=== PATIENT | male | born 1960 | race African-American/Black ===

== ENCOUNTER 2016-10-05 21:04 | Emergency (ER) | payer OTHER ==
[2016-10-05 22:45] LABS: BASOPHILS % 0.4 (0.0-1.5); EOSINOPHILS % 0.8 % (0.0-6.8); MEAN CORPUSCULAR HEMOGLOBIN 31.9 pg (28.0-34.0); MONOCYTES % 2.9 % (0.0-11.0)
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
[2016-10-05] MEDS ORDERED: 0.9 % SODIUM CHLORIDE 1,000 ML IV ONE (22:59)
[2016-10-05] MEDS ORDERED: THIAMINE HCL 100 MG/ML 2ML VIAL ONE (22:59)
[2016-10-05] MEDS ORDERED: MVI, ADULT NO.1 WITH VIT K 10 ML VIAL IV ONE (23:00)
[2016-10-05] MEDS: THIAMINE HCL 100 MG, MVI, ADULT NO.1 WITH VIT K 10 ML, FOLIC ACID 5 MG in 0.9 % SODIUM ... IV SCH ×4 (23:00)
[2016-10-05] MEDS ORDERED: FOLIC ACID 5 MG/1 ML ONE (23:00)
[2016-10-05 23:03] LABS: AMPHETAMINE NEGATIVE ng/mL (<1000); BARBITURATES NEGATIVE ng/mL (<300); CANNABINOIDS NEGATIVE ng/mL (< 50); COCAINE NEGATIVE ng/mL (<150); METHAMPHETAMINE NEGATIVE ng/mL (<1000); METHYLENEDIOXYMETHAMPHETAMINE NEGATIVE ng/mL (<500); MORPHINE NEGATIVE ng/mL (<300)
[2016-10-05 23:06] LABS: eGFR (African) > 60; eGFR (Non-African) > 60
[2016-10-05 23:23] LABS: APPEARANCE,URINE CLOUDY (CLEAR); COLOR,URINE AMBER (YELLOW); OCCULT BLOOD,URINE 2+ (NEGATIVE); PH URINE 6.5 (5.0 - 8.0); UROBILINOGEN URINE 0.2 Eu (0.2-1.0)
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
[2016-10-06 02:11] VITALS: BP 145/85
== END 2016-10-06 01:45 | disposition short-term general hospital (02) ==
LOC: ED 21:04
DX: S22.009A Unspecified fracture of unspecified thoracic vertebra, initial encounter for closed fracture (principal); S12.691A Other nondisplaced fracture of seventh cervical vertebra, initial encounter for closed fracture; S22.31XA Fracture of one rib, right side, initial encounter for closed fracture; V89.2XXA Person injured in unspecified motor-vehicle accident, traffic, initial encounter; Y93.9 Activity, unspecified; Y99.9 Unspecified external cause status
CPT/HCPCS: 70450; 72125; 72128; 72131; 74176; 80053; 80320; 80377; 81002; 85025; J3411; J3490; J7030; 12001; 96361; 96374; 99284; G0480; G0481